=== PATIENT | female | born 1985 | race Hispanic/Latino ===

== ENCOUNTER 2016-11-23 11:57 | Inpatient (IN) | payer BC, MEDICAID ==
[2016-11-23 13:04] VITALS: BMI 32.4
[2016-11-23] MEDS ORDERED: Lactated Ringer's 1,000 ML IV SCH ×2 (13:36→13:45)
--- NOTE | 2016-11-23 14:26 | OBHP ---
Datetime: 11/23/2016 14:20 IP Adm Impression: Term, intrauterine ; No Active Labor IP Admit Plan: Admit to unit; Observation/Evaluation; Discharge home Admit Comment, IP Provider: The patient is a 31-year-old 3 para 1 estimated due date 017 the patient was referred to L_D for evaluation and possible delivery secondary to breech presenta tion and gestational diabetes. Patient reports good movement no vaginal bleeding or leakage of fluid. Past medical history none Past surgical history none No known drug allergies Social history denies alcohol tobacco use care significant for gestational diabetes Medication glyburide 2.5 mg by mouth twice a day Review of systems patient denies headache chest pain shortness of breath palpitations nausea vomit ing diarrhea vaginal bleeding heat or cold intolerance he's bruisability musculoskeletal or neurologi jasmine complaints Vital signs stable afebrile Physical exam see notes Intrauterine at 37+ weeks Bedside sonogram vertex presentation Fingerstick 86 NST reactive no uterine contractions noted Patient currently not breech patient follow-up in the office on Monday the patient was given labor precautions patient was to follow movement counts, biophysical profile and sonogram on Monday Pelvic Type - PN: Adequate Extremities - PN: Normal Abdomen - PN: Normal Back - PN: Normal Breast - PN: Normal Lungs - PN: Normal Heart - PN: Normal Thyroid - PN: Normal Neurologic - PN: Normal HEENT - PN: Normal General - PN: Normal Presentation-Admit: Vertex FHR - Baseline A Provider: 145 Gestation - Est Wks by US: 37.0 EGA AdmitDate IP: 37.6 Vital Signs Provider: Reviewed IP Chief Complaint: Scheduled Section NICHD Variability Prov Fetus A: Moderate 6-25bpm NICHD Accel Fetus A IP Provider: 15X15 FHR Category Provider Fetus A: Category I NICHD Decel Fetus A IP Provider: None Dilatation, Provider: 1 Effacement, Provider: 50 Station, Provider: -2 Genitourinary Exam: Normal DTRs - PN: Normal
== END 2016-11-23 14:30 | disposition home or self-care (01) | DRG 780 ==
LOC: H.EROB2 11:57 → H.L&D 13:36
PROVIDERS: ADMIT Obstetrics & Gynecology; ATTEND Obstetrics & Gynecology
PROC: 4A1HXCZ Monitoring of Products of Conception, Cardiac Rate, External Approach (ICD-10-PCS; principal; 2016-11-23)
DX: O47.1 False labor at or after 37 completed weeks of gestation (principal); O24.419 Gestational diabetes mellitus in pregnancy, unspecified control; Z3A.37 37 weeks gestation of pregnancy

== ENCOUNTER 2016-11-28 19:04 | Inpatient (IN) | payer BC, OTHER ==
[2016-11-28] MEDS ORDERED: Lactated Ringer's 1,000 ML IV SCH ×2 (20:12→20:15)
[2016-11-28 21:27] LABS: BASO % 0.5 % (0.0-2.0); EOS # 0.1 K/uL (0.0-0.7); EOS % 0.7 % (0.0-4.0); HEMOGLOBIN 12.2 g/dL (12.0-16.0); LYMPH # 1.9 K/uL (1.0-4.3); LYMPH % 21.7 % (20.0-40.0); MEAN CORPUSCULAR HEMOGLOBIN 28.6 pg (27.0-31.0); MEAN CORPUSCULAR HGB CONC 33.2 g/dL (33.0-37.0); MEAN PLATELET VOLUME 9.9 fl (7.2-11.7); MONO # 0.8 K/uL (0.0-0.8); MONO % 8.8 % (0.0-10.0); NEUT % 68.3 % (50.0-75.0); RBC 4.27 Mil/uL (3.80-5.20); RED CELL DISTRIBUTION WIDTH 14.5 % (11.5-14.5); WHITE BLOOD COUNT 8.8 K/uL (4.8-10.8)
--- NOTE | 2016-11-28 22:43 | OBADHP ---
Datetime: 11/28/2016 20:35 Admit Comment, IP Provider: This is a 31 y/o at 38.2 weeks GA with a JEAN-PAUL 12/08/16 as per LMP p resencting for scheduled IOL due to polyhydramnios and GDM A2. Pt reports +FM. Pt denies H/A, N/V, CT X, vaginal bleeding or LOF. NKDA Medications: Glyburide 5 mg BID and PNV. PMHx: denied. PSHx: denied. OBHx: , 1x at 40.6 weeks GA 13 year ago with NO complications. 1x SAB at 11 weeks 3 y ears ago. SHx: No tobacco, alcohol or recreational drugs. A_P: IUP at 38.4 weeks GA with polyhydramnios and GDM A2. Will be admitted and initiate IOL protocol. IV fluids Monitors serum glucose Q4H. Cervidil will be placed. Possible risk and complications reviewed with pt. Case discussed with DR Carranza, OB valuation manager. Junior Cheema PGY-1. obh addendum: pt seen _ examined by me. agree with above assessment and plan. Pelvic Type - PN: Adequate Extremities - PN: Normal Abdomen - PN: Normal Back - PN: Normal Breast - PN: Not Done Lungs - PN: Normal Heart - PN: Normal Thyroid - PN: Normal Neurologic - PN: Normal HEENT - PN: Normal General - PN: Normal Presentation-Admit: Vertex FHR - Baseline A Provider: 140 Comments, ACOG Physical Exam: bedside us confirms vtx Gestation - Est Wks by US: 38.4 IP Hx Assessment: The History has been Reviewed and is Current Vital Signs Provider: Reviewed IP Chief Complaint: Scheduled induction of labor NICHD Variability Prov Fetus A: Moderate 6-25bpm NICHD Accel Fetus A IP Provider: 15X15 FHR Category Provider Fetus A: Category I NICHD Decel Fetus A IP Provider: None Dilatation, Provider: 0 Effacement, Provider: 0 Station, Provider: -3/ballotable Genitourinary Exam: Normal EGA AdmitDate IP: 38.4 IP Adm Impression: Term, intrauterine ; No Active Labor IP Admit Plan: Admit to unit; Initiate labor induction protocol Datetime: 11/23/2016 14:20 DTRs - PN: Normal
[2016-11-29] MEDS: Lactated Ringer's 1,000 ML IV SCH ×2 (13:20→21:15)
--- NOTE | 2016-11-29 13:41 | OBPN ---
Datetime: 11/29/2016 11:05 IP Progress Impression: Normal progression of labor; Reassuring heart rate IP Informed Consent Obtain: Vaginal Delivery; Risks, Benefits and Alternatives Discussed IP Progress Plan: Continue present management; Induction; Cervical Ripening Pool Provider: Negative Membranes, Provider: Intact Contraction Comments Provider: occasioanl FHR - Baseline A Provider: 140 Presentation-Admit: Vertex IP Progress Note Comment: OB Hospitalist on-call Sign out rec'd earlier today She was given Cervidl for IOL A: IUP at 38w/GDM controlled PLAN: Cervidil removed...change to Cytotec po. Managment discussed with patient. She understood a nd her questoins answered. Continue IOL NICHD Accel Fetus A IP Provider: 10X10 FHR Category Provider Fetus A: Category I NICHD Variability Prov Fetus A: Moderate 6-25bpm Dilatation, Provider: FT Effacement, Provider: LONG Station, Provider: HIGH NICHD Decel Fetus A IP Provider: None Datetime: 11/28/2016 20:35 Gestation - Est Wks by US: 38.4 Vital Signs Provider: Reviewed
--- NOTE | 2016-11-29 17:28 | OBPN ---
Datetime: 11/29/2016 17:05 IP Progress Impression: Reassuring heart rate; Reactive non-stress test IP Informed Consent Obtain: Vaginal Delivery; Risks, Benefits and Alternatives Discussed IP Procedures: Artificial ROM IP Progress Plan: Continue present management; Induction; Cervical Ripening Pool Provider: Negative Membranes, Provider: Intact Contraction Comments Provider: 2m FHR - Baseline A Provider: 140 Presentation-Admit: Vertex IP Progress Note Comment: She is feeling ctx pain. SVE 1cm A: Latent phase of labor PLAN: AROM clear fluid /observe labor progress NICHD Accel Fetus A IP Provider: 15X15 FHR Category Provider Fetus A: Category I NICHD Variability Prov Fetus A: Moderate 6-25bpm Dilatation, Provider: 1 Effacement, Provider: 50 Station, Provider: -3 NICHD Decel Fetus A IP Provider: None
[2016-11-29] MEDS ORDERED: Fentanyl/Bupivacaine HCl 250 ML EPI ONE (21:22)
[2016-11-29] MEDS ORDERED: Lidocaine 1% Inj (20ml) ONE (22:10)
--- NOTE | 2016-11-30 00:01 | OBPN ---
Datetime: 11/29/2016 23:50 IP Progress Impression: Normal progression of labor; Reactive non-stress test IP Informed Consent Obtain: Vaginal Delivery; Risks, Benefits and Alternatives Discussed IP Progress Plan: Continue present management; Anticipate Vaginal Delivery Pool Provider: Positive Membranes, Provider: Ruptured Amniotic Fluid Color, Provider: Clear Contraction Comments Provider: 2-4m FHR - Baseline A Provider: 150 Presentation-Admit: Vertex IP Progress Note Comment: After AROM, she felt more CTX pain. Cytotec was held at 20:00pm. She was chjecked and found to be 3cm dilated. She rec'd epidural Since then she feels comfortable. SVE fully dilated A: Second stage of labor PLAN Currently on no meds: anticipated NICHD Accel Fetus A IP Provider: 15X15 FHR Category Provider Fetus A: Category I NICHD Variability Prov Fetus A: Moderate 6-25bpm Dilatation, Provider: 10 Effacement, Provider: 100 Station, Provider: 0 NICHD Decel Fetus A IP Provider: None
[2016-11-30] MEDS ORDERED: Oxycodone/Acetaminophen 5/325 mg Tab PO PRN ×2 (01:17→03:52)
[2016-11-30] MEDS ORDERED: Benzocaine/Menthol SPRAY TOP PRN ×2 (01:17→03:52)
[2016-11-30 03:02] VITALS: RESP 18
[2016-11-30] MEDS ORDERED: Multivitamin With Minerals Tab PO SCH (09:00)
--- NOTE | 2016-11-30 09:19 | OBDS ---
DELIVERY PERSONNEL Delivery Doctor: Vianney Gaines DO Med Surg Nurse: Lakia Street RN Anesthesiologist: Sagar Rain MD MATERNAL INFORMATION Delivery Anesthesia: Local; Epidural Medications in Delivery: Lidocaine 1% Estimated Blood Loss (ml): 200 Placenta Cultured: No Maternal Complications: None Provider Comments: Over intact perineum, of live 9,9. Infant bulb suctioned. Del ayed cord clamping and skin to skin done. Placenta delivered intact spontaneously. She remained sta ble. EBL 200cc LABOR SUMMARY EDC: 12/08/2016 00:00 No. Babies in Womb: 1 Attempted: No Labor Anesthesia: Epidural LABOR INFORMATION Reason for Induction: Maternal Diabetes; Polyhydramnios Onset of Labor: 11/29/2016 21:05 Complete Dilatation: 11/29/2016 23:52 Cervical Ripening Agents: Cytotec @ Other Ripening Agents: cervidil intact Oxytocin: N/A Group B Beta Strep: Negative Antibiotics # of Doses: n/a Antibiotics Time of Last Dose: n/a Steroids Given: None Reason Steroids Not Administered: Not Applicable MEMBRANES Membranes Rupture Method: Artificial Rupture of Membranes: 11/29/2016 17:05 Length of Rupture (hrs): 7.67 Amniotic Fluid Color: Clear Amniotic Fluid Amount: Large Amniotic Fluid Odor: Normal STAGES OF LABOR Stage 1 hrs: 2 Stage 1 min: 47 Stage 2 hrs: 0 Stage 2 min: 53 Stage 3 hrs: 0 Stage 3 min: 25 Total Time in Labor hrs: 4 Total Time in Labor min: 5 VAGINAL DELIVERY Episiotomy: None Laceration Extension: Second Degree Laceration Type: Perineal Other Laceration: Sub clitoral Laceration Repair: Yes Laceration Repair Note: 1% Lidocaine infiltrated (5cc). 3.0 Vicryl Rapide used to repair subclitora l laceration...2.0 Vicryl Rapide used to repair perinuem Initial Vag Sponge Count: 10 Final Vag Sponge Count: 10 Initial Vag Sharps Count: 4 Final Vag Sharps Count: 4 Sponge Count Correct: Yes Sharps Count Correct: Yes BABY A INFORMATION Delivery Date/Time: 11/30/2016 00:45 Method of Delivery: Vaginal Born in Route : No : N/A Forceps: N/A Vacuum Extraction: N/A Shoulder Dystocia : No SHOULDER DYSTOCIA BABY A Delivery Date/Time: 11/30/2016 00:45 PRESENTATION/POSITION BABY A Presentation: Cephalic PLACENTA INFORMATION BABY A Placenta Delivery Time : 11/30/2016 01:10 Placenta Method of Delivery: Spontaneous Placenta Status: Delivered SCORES BABY A Heart Rate 1 min: >100 bpm Resp Effort 1 min: Good Cry Reflex Irritability 1 min: Cough or Sneeze or Pulls Away Muscle Tone 1 min: Active Motion Color 1 min: Body [place], Extremities Blue Resuscitation Effort 1 min: N/A SCORE 1 MIN: 9 Heart Rate 5 min: >100 bpm Resp Effort 5 min: Good Cry Reflex Irritability 5 min: Cough or Sneeze or Pulls Away Muscle Tone 5 min: Active Motion Color 5 min: Body [place], Extremities Blue Resuscitation Effort 5 min: N/A SCORE 5 MIN: 9 INFANT INFORMATION BABY A Gestational Age at Delivery: 38.6 Gestational Status: Term Outcome : Liveborn Infant Condition : Stable Infant Sex: Female WEIGHT/LENGTH BABY A Birthweight (gms): 2955 Infant Weight (lb): 6 Weight (oz): 8 CORD INFORMATION BABY A No. Cord Vessels: 3 Nuchal Cord : N/A Cord Blood Taken: Yes Suction: Mouth; Nose
[2016-11-30] MEDS: Multivitamin With Minerals Tab PO SCH (09:44)
--- NOTE | 2016-11-30 09:59 | OBPPN ---
Datetime: 11/30/2016 09:54 PP Pain Prov: Within normal limits PP Nausea Prov: Denies PP Flatus Prov: Yes PP Breasts Prov: Not Done PP Heart Prov: Normal PP Lungs Prov: Normal PP Abdomen/Uterus Prov: Normal PP Lochia Prov: Not Done PP Vulva/Perineum Prov: Not Done PP CVA Tenderness Prov: Normal PP Extremities Prov: Normal PP Impression Prov: Normal progression PP Progress Note Prov: Patient doing well pain well controlled ambulating tolerating diet and report s minimal lochia Vital signs stable afebrile Uterus firm below the umbilicus Extremities no Homans day #1 Regular diet, ambulation, analgesia as needed Vital Signs Provider PP: Reviewed
[2016-12-01 06:00] LABS: HEMOGLOBIN 10.3 g/dL (12.0-16.0); MEAN CELL VOLUME 86.9 fl (81.0-99.0); MEAN CORPUSCULAR HEMOGLOBIN 29.1 pg (27.0-31.0); MEAN CORPUSCULAR HGB CONC 33.5 g/dL (33.0-37.0); RBC 3.56 Mil/uL (3.80-5.20); RED CELL DISTRIBUTION WIDTH 14.8 % (11.5-14.5); WHITE BLOOD COUNT 13.8 K/uL (4.8-10.8)
--- NOTE | 2016-12-01 08:30 | OBPPN ---
Datetime: 12/01/2016 08:25 PP Pain Prov: Within normal limits PP Abdomen/Uterus Prov: Normal PP Lochia Prov: Normal PP Progress Prov: Normal PP Impression Prov: Normal progression PP Plan Prov: Continue present management PP Progress Note Prov: PPD 1 s/p , doing well, breast and bottle feeding Continue current management Vital Signs Provider PP: Reviewed; Within Normal Limits
--- NOTE | 2016-12-02 07:35 | OBDCSUM ---
Datetime: 12/02/2016 07:33 Discharged to, Provider: Home Follow up at, Provider: Dr. Corcoran Disch Instr Activity: Normal activity; May Shower Disch Instr Diet: Regular Discharge Instructions, Provider: Routine instructions given Discharge Diagnosis, Provider: Term Delivered Discharge Time: 12/02/2016 07:33 Follow up in weeks, Provider: 6 weeks Contraception discussed, Prov: No Disch Activity Restrictions: No exercising; No lifting; No sexual activity; Nothing in vagina - Inte rcourse, tampons, douche
--- NOTE | 2016-12-02 07:35 | OBPPN ---
Datetime: 12/02/2016 07:30 PP Pain Prov: Within normal limits PP Abdomen/Uterus Prov: Normal PP Lochia Prov: Normal PP Extremities Prov: Normal PP Progress Prov: Normal PP Impression Prov: Normal progression PP Plan Prov: Discharge PP Progress Note Prov: PPD 2 s/p , doing well, breast and bottle feeding Rx ferrous sulfate and motrin given Discharge home today Vital Signs Provider PP: Reviewed; Within Normal Limits
[2016-12-02] MEDS: Multivitamin With Minerals Tab PO SCH (08:45)
[2016-12-02 19:08] VITALS: BP 100/66; PULSE 81; TEMP 98.2; O2SAT 98
== END 2016-12-02 14:15 | disposition home or self-care (01) | DRG 775 ==
LOC: H.EROB2 19:04 → H.L&D 20:12 → H.OB/GYN 11-30 04:25
PROVIDERS: ADMIT Obstetrics & Gynecology; ATTEND Obstetrics & Gynecology
PROC: 4A1HXCZ Monitoring of Products of Conception, Cardiac Rate, External Approach (ICD-10-PCS; 2016-11-28)
PROC: 10E0XZZ Delivery of Products of Conception, External Approach (ICD-10-PCS; principal; 2016-11-30)
PROC: 0KQM0ZZ Repair Perineum Muscle, Open Approach (ICD-10-PCS; 2016-11-30)
DX: O24.425 Gestational diabetes mellitus in childbirth, controlled by oral hypoglycemic drugs (principal); O40.3XX0 Polyhydramnios, third trimester, not applicable or unspecified; Z37.0 Single live birth; Z3A.38 38 weeks gestation of pregnancy; O70.1 Second degree perineal laceration during delivery